=== PATIENT | female | born 1980 | race Caucasian/White ===

== ENCOUNTER 2021-06-14 17:35 | Inpatient (IN) ==
[2021-06-14 18:18] LABS: Bacteria,Urine Occasional /HPF (Few); Mucus,Urine Occasional /LPF (Occasional); RBC,Urine 2 /HPF (0-4); Squamous Epithelial Cell,Urine Occasional /HPF (0-10)
[2021-06-14 18:28] LABS: Bilirubin,Urine Negative (Negative); Blood, Urine Moderate mg/dL (Negative); Glucose,Urine (UA) Negative (Negative); Ketones,Urine Negative (Negative); Nitrite,Urine Negative (Negative); Protein,Urine Negative; Urine Appearance Clear (Clear); Urine Color Light Yellow (Yellow); Urine Specific Gravity <= 1.005 (1.001-1.035)
[2021-06-14 18:29] LABS: Urine Urobilinogen < 2.0 EU/DL (<2.0)
[2021-06-14] MEDS ORDERED: SODIUM CHLORIDE 0.9% 1,000 ML IV STA (18:45)
[2021-06-14] MEDS ORDERED: ONDANSETRON 4 MG/2 ML VIAL IV STA (18:45)
[2021-06-14] MEDS ORDERED: cefTRIAXone 1,000 MG in SODIUM CHLORIDE 0.9% 100 ML IV STA (18:45)
[2021-06-14 19:19] LABS: Basophils % 0.3 % (0.0-0.8); Hematocrit 38.2 VOL% (35.7-47.0); Immature Granulocytes % 0.7 %; Immature Granulocytes Absolute 0.11 #; Lymphocytes # 0.7 10*3/uL (1.4-4.0); Mean Corpuscular Volume 90.3 FL (87-102); Mean Platelet Volume 11.4 FL (9.6-12.0); Monocytes % 8.5 % (1.7-12.7); Neutrophils % 85.5 % (38.7-73.9); Platelet Count 141 T/CUMM (130-400); Red Blood Count 4.23 MC/CUMM (3.8-5.5); Red Cell Distribution Width 12.7 % (9.3-17.3); White Blood Count 14.7 T/CUMM (4-12)
[2021-06-14 19:26] LABS: Albumin 2.8 G/DL (3.4-5.0); Bilirubin,Total 0.4 MG/DL (0.20-1.00); Calcium 8.3 MG/DL (8.5-10.1); Osmolality,Calculated 274.8 MOS/KG (273-304); Potassium 3.5 MMOL/L (3.5-5.1); Total Protein 6.7 G/DL (6.4-8.2)
[2021-06-14 19:53] LABS: Band Neutrophils 1 % (0-10); Hypochromia Slight; Lymphocytes 5 % (20-55); Platelet Estimate Normal; Segmented Neutrophils 90 % (50-85); Total Cells Counted 100
[2021-06-14] MEDS ORDERED: PROMETHAZINE 25 MG/1 ML VIAL IM STA (21:27)
[2021-06-14] MEDS ORDERED: MORPHINE 4 MG/1 ML VIAL IV PRN (22:45)
[2021-06-14] MEDS ORDERED: DOCUSATE SODIUM 100 MG CAPSULE PO PRN (22:45)
[2021-06-14] MEDS ORDERED: DEXTROSE 10% 250 ML BAG IV PRN (22:45)
[2021-06-14] MEDS ORDERED: PROMETHAZINE 25 MG/1 ML VIAL IM PRN (22:45)
[2021-06-14] MEDS ORDERED: guaiFENesin/DM ER 600-30 MG TABLET PO PRN (22:45)
[2021-06-14] MEDS ORDERED: GLUCAGON 1 MG VIAL IM PRN (22:45)
[2021-06-14] MEDS ORDERED: NICOTINE 21 MG/24 HR PATCH TRANSDERM PRN (22:45)
[2021-06-14] MEDS ORDERED: diphenhydrAMINE CAP 25 MG CAPSULE PO PRN (22:45)
[2021-06-14] MEDS ORDERED: ZALEPLON 5 MG CAPSULE PO PRN (22:45)
[2021-06-14] MEDS ORDERED: hydrALAZINE 20 MG/1 ML VIAL IV PRN (22:45)
[2021-06-15] MEDS: SODIUM CHLORIDE 0.9% 1,000 ML IV SCH ×3 (01:15→19:45)
[2021-06-15 05:37] LABS: Basophils # 0.1 10*3/uL (0.0-0.2); Basophils % 0.3 % (0.0-0.8); Hematocrit 35.9 VOL% (35.7-47.0); Hemoglobin 12.1 GM/DL (12.0-16.0); Immature Granulocytes % 0.8 %; Immature Granulocytes Absolute 0.13 #; Lymphocytes # 0.9 10*3/uL (1.4-4.0); Lymphocytes % 5.8 % (21.3-54.2); Mean Corpuscular HGB Conc 33.7 GM/DL (32-36); Mean Corpuscular Volume 91.3 FL (87-102); Monocytes % 6.1 % (1.7-12.7); Platelet Count 135 T/CUMM (130-400); Red Blood Count 3.93 MC/CUMM (3.8-5.5); Red Cell Distribution Width 12.7 % (9.3-17.3); White Blood Count 15.5 T/CUMM (4-12)
[2021-06-15 05:47] LABS: Osmolality,Calculated 276.5 MOS/KG (273-304)
[2021-06-15 06:08] LABS: Band Neutrophils 1 % (0-10); Eosinophils 1 % (0-10); Lymphocytes 5 % (20-55); Segmented Neutrophils 89 % (50-85); Total Cells Counted 100
[2021-06-15 06:09] LABS: Hypochromia Slight; Microcytosis Slight; Platelet Estimate Adequate
[2021-06-15] MEDS ORDERED: propofoL 200 MG/20 ML VIAL IV ONE (07:08)
[2021-06-15] MEDS ORDERED: LIDOCAINE 2% 5 ML VIAL ONE (07:08)
[2021-06-15] MEDS ORDERED: MIDAZOLAM 2 MG/2 ML VIAL ONE (07:08)
[2021-06-15] MEDS ORDERED: DEXAMETHASONE 4 MG/1 ML VIAL ONE (07:08)
[2021-06-15] MEDS ORDERED: fentaNYL 100 MCG/2 ML VIAL ONE (07:08)
[2021-06-15] MEDS ORDERED: ONDANSETRON 4 MG/2 ML VIAL ONE ×3 (07:08→08:55)
[2021-06-15] MEDS ORDERED: ROCURONIUM 50 MG/5 ML VIAL IV ONE (07:08)
[2021-06-15] MEDS ORDERED: LACTATED RINGERS 1,000 ML IV SCH (08:00)
[2021-06-15] MEDS ORDERED: ACETAMINOPHEN INJ 1,000 MG/100 ML VIAL IV ONE (08:03)
[2021-06-15] MEDS ORDERED: GENTAMICIN 80 MG/2 ML VIAL ONE (08:19)
[2021-06-15] MEDS ORDERED: GLYCOPYRROLATE 0.4 MG/2 ML VIAL ONE (08:25)
[2021-06-15] MEDS ORDERED: NEOSTIGMINE 10 MG/10 ML VIAL ONE (08:25)
[2021-06-15] MEDS ORDERED: HYDROmorphone 2 MG/1 ML VIAL IV PRN (08:48)
[2021-06-15] MEDS ORDERED: diphenhydrAMINE 50 MG/1 ML VIAL IV PRN (08:48)
[2021-06-15] MEDS ORDERED: PROMETHAZINE INJ 25 MG in SODIUM CHLORIDE 0.9% 50 ML IV PRN (08:48)
[2021-06-15] MEDS ORDERED: MEPERIDINE 25 MG/1 ML VIAL IV PRN (08:48)
[2021-06-15] MEDS ORDERED: ONDANSETRON 4 MG/2 ML VIAL IV PRN (08:48)
[2021-06-15] MEDS ORDERED: SEVOFLURANE 1 UNIT/15 MINUTE INH ONE (08:52)
[2021-06-15] MEDS ORDERED: INFLUENZA VIRUS VACCINE 0.5 ML SYRINGE IM ONE (09:00)
[2021-06-15] MEDS: HEPARIN 5,000 UNIT/1 ML VIAL SUBCUT SCH ×2 (10:17→22:20)
[2021-06-15] MEDS: cefTRIAXone 1,000 MG in SODIUM CHLORIDE 0.9% 100 ML IV SCH (10:17)
[2021-06-15] MEDS: ACETAMINOPHEN 325 MG TABLET PO PRN ×3 (13:20→22:22)
[2021-06-16] MEDS: SODIUM CHLORIDE 0.9% 1,000 ML IV SCH (03:38)
[2021-06-16 05:30] LABS: Basophils % 0.4 % (0.0-0.8); Hematocrit 34.9 VOL% (35.7-47.0); Hemoglobin 11.8 GM/DL (12.0-16.0); Immature Granulocytes % 0.7 %; Immature Granulocytes Absolute 0.07 #; Lymphocytes # 0.9 10*3/uL (1.4-4.0); Lymphocytes % 9.4 % (21.3-54.2); Mean Corpuscular HGB Conc 33.8 GM/DL (32-36); Mean Corpuscular Volume 90.6 FL (87-102); Mean Platelet Volume 11.5 FL (9.6-12.0); Monocytes % 12.3 % (1.7-12.7); Neutrophils % 77.2 % (38.7-73.9); Platelet Count 149 T/CUMM (130-400); Red Blood Count 3.85 MC/CUMM (3.8-5.5); Red Cell Distribution Width 13.1 % (9.3-17.3); White Blood Count 9.9 T/CUMM (4-12)
[2021-06-16 05:56] LABS: Osmolality,Calculated 275.5 MOS/KG (273-304); Potassium 3.8 MMOL/L (3.5-5.1)
[2021-06-16 08:14] VITALS: BP 141/77
[2021-06-16] MEDS: cefTRIAXone 1,000 MG in SODIUM CHLORIDE 0.9% 100 ML IV SCH (09:37)
[2021-06-16] MEDS: HEPARIN 5,000 UNIT/1 ML VIAL SUBCUT SCH (09:37)
== END 2021-06-16 10:45 | disposition home or self-care (01) | DRG 661 ==
LOC: N.ED 17:35 → N.EDINP 22:45 → N.5E 06-15 01:02
PROVIDERS: ADMIT Internal Medicine Geriatric Medicine; ATTEND Internal Medicine Geriatric Medicine